=== PATIENT | male | born 1935 | race Caucasian/White ===

== ENCOUNTER → 2017-10-14 | Outpatient (CLI) | payer MEDICARE, OTHER ==
--- NOTE | 2017-10-17 11:16 | RADRPT ---
EXAM DATE/TIME: 10/14/2017 15:57 CONSULTATION: 82-year-old male with history of stage III lung CA and enlarging complex right upper lobe renal mass. Review of multiple prior CT and MRI examinations is performed. On 03/21/2017 CT exam there are 2 sma ll cysts in the superior pole of the right kidney but no definite lesion. On CT examination of 018 and MRI examination of 09/22/2017 there is a new 2.7 cm enhancing solid mass in the superior pole of the right kidney which is mixed approximately 50% endophytic. Mass is certainly amenable to ablati on and biopsy. Tobi Benson MD on October 17, 2017 at 11:00 Board Certified Radiologist. This report was verified electronically.
== END ==
LOC: HRAD 14:14
PROVIDERS: ATTEND Internal Medicine Hematology
DX: N28.89 Other specified disorders of kidney and ureter (principal)

== ENCOUNTER 2017-10-25 07:41 | Day surgery (SDC) | payer MEDICARE, OTHER ==
[~2017-10-25] VITALS: Ht 175.3 cm; Wt 97.7 kg
[2017-10-25] MEDS ORDERED: CLON0.1T PO (08:02)
[2017-10-25] MEDS ORDERED: CARV12.52 PO (08:03)
[2017-10-25] MEDS ORDERED: HYDR-3801 PO (08:04)
[2017-10-25] MEDS ORDERED: LOSA50TA PO (08:06)
[2017-10-25] MEDS ORDERED: GABA600T PO (08:06)
[2017-10-25] MEDS ORDERED: ATOR10TA15 PO (08:07)
[2017-10-25 08:08] VITALS: BP 196/98; PULSE 70; RESP 18; TEMP 97.6; O2SAT 94
[2017-10-25] MEDS ORDERED: FURO40TA PO (08:08)
[2017-10-25 08:43] LABS: AUTOMATED NEUTROPHIL # 5.1 TH/MM3 (1.8-7.7); BASOPHIL % 0.5 % (0.0-2.0); EOSINOPHIL # 0.2 TH/MM3 (0-0.4); HEMATOCRIT 40.7 % (39.0-51.0); LYMPH % 21.7 % (9.0-44.0); LYMPHOCYTE # 1.7 TH/MM3 (1.0-4.8); MEAN CELL VOLUME 84.6 FL (80.0-100.0); MEAN CORPUSCULAR HEMOGLOBIN 29.1 PG (27.0-34.0); MEAN CORPUSCULAR HGB CONC 34.4 % (32.0-36.0); MEAN PLATELET VOLUME 7.9 FL (7.0-11.0); MONO % 9.2 % (0.0-8.0); MONOCYTE # 0.7 TH/MM3 (0-0.9); NEUT % 65.6 % (16.0-70.0); PLATELET COUNT 326 TH/MM3 (150-450); RED BLOOD COUNT 4.81 MIL/MM3 (4.50-5.90); RED CELL DISTRIBUTION WIDTH 15.6 % (11.6-17.2); WHITE BLOOD COUNT 7.7 TH/MM3 (4.0-11.0)
[2017-10-25 08:56] LABS: INTERNATIONAL NORMALIZED RATIO 1.1 RATIO; PROTHROMBIN TIME - PATIENT 10.7 SEC (9.8-11.6)
[2017-10-25] MEDS ORDERED: INSULIN HUMAN REGULAR 1,000 UNITS/10 ML VIAL SQ PRN (09:00)
[2017-10-25] MEDS ORDERED: POVIDONE IODINE 5% (ANTISEPSIS KIT) 4 APPLICATIONS EACH NARE PRN (09:00)
[2017-10-25] MEDS ORDERED: ceFAZolin 2 GM in NS 100 ML IV SCH (09:00)
[2017-10-25] MEDS ORDERED: LACTATED RINGER'S 1000 ML IV PRN (09:00)
[2017-10-25] MEDS ORDERED: SODIUM CHLORID 0.9% 500 ML IV PRN (09:00)
[2017-10-25] MEDS ORDERED: METOPROLOL TARTRATE 25 MG TAB PO PRN (09:00)
[2017-10-25] MEDS ORDERED: LEVOFLOXACIN 500 MG PREMIX INJ 100 ML IV SCH (09:00)
[2017-10-25] MEDS ORDERED: CHLORHEXIDINE GLUCONATE 2 % 1 PACK (2 CLOTHS) TOPICAL PRN (09:00)
[2017-10-25] MEDS ORDERED: SODIUM CHLOR 0.9% 1000 ML INJ 1,000 ML IV SCH (09:00)
[2017-10-25 09:03] LABS: BICARBONATE 28.4 MEQ/L (21.0-32.0); CALCIUM 9.5 MG/DL (8.5-10.1); CREATININE 1.2 MG/DL (0.60-1.30)
[2017-10-25] MEDS ORDERED: ACETAMINOPHEN 1000 MG/100 ML 100 ML IV ONE (10:00)
[2017-10-25] MEDS ORDERED: FAMOTIDINE 20 MG/2 ML VIAL ONE (10:01)
[2017-10-25] MEDS ORDERED: SUGAMMADEX SODIUM 200 MG/2 ML VIAL IV PUSH ONE (10:01)
[2017-10-25] MEDS ORDERED: LIDOCAINE 1%/EPINEPHrine 1:100,000 SOLN 20 ML VIAL ONE (10:03)
--- NOTE | 2017-10-25 11:31 | PD.RAD ---
Post CT Procedure Prog Note Pre Procedure Diagnosis: (1) Renal mass Post Procedure Diagnosis: (1) Renal mass Procedure Date: October 25, 2017 Supervising Radiologist: Tobi Benson Anesthesia: General Plan of Activity Patient to Unit: PACU Patient Condition: Good See PACS Report for procedural detail/treatment Tobi Benson MD October 25, 2017 11:31
[2017-10-25] MEDS ORDERED: ePHEDrine/NS 25 MG/5 ML SYRINGE IV ONE (12:00)
[2017-10-25] MEDS ORDERED: PROPOFOL 200 MG/20 ML AMP IV ONE (12:00)
[2017-10-25] MEDS ORDERED: GLYCOPYRROLATE 1 MG/5 ML SYRINGE IV PUSH ONE (12:00)
[2017-10-25] MEDS ORDERED: NEOSTIGMINE 5 MG/5 ML SYRINGE IV PUSH ONE (12:00)
[2017-10-25] MEDS ORDERED: ROCURONIUM INJ 50 MG/5 ML SYRINGE IV PUSH ONE (12:00)
[2017-10-25] MEDS ORDERED: LIDOCAINE HCL 1% PF 5 ML SYRINGE OTHER ONE (12:00)
[2017-10-25] MEDS ORDERED: ONDANSETRON HCL 4 MG/2 ML VIAL IV ONE (12:00)
[2017-10-25] MEDS ORDERED: PHENYLEPHRINE HCL 10 MG/ML VIAL IV ONE (12:00)
[2017-10-25] MEDS ORDERED: KETOROLAC TROMETHAMINE 30 MG/ML (IVP) VIAL IV PUSH ONE (12:00)
[2017-10-25] MEDS ORDERED: PHENYLEPH/NS 1000 MCG/10 ML SYR IV ONE (12:00)
[2017-10-25] MEDS ORDERED: MIDAZOLAM HCL 2 MG/2 ML VIAL ONE (12:15)
[2017-10-25 12:38] LABS: HEMATOCRIT 39.7 % (39.0-51.0); HEMOGLOBIN 13.4 GM/DL (13.0-17.0)
[2017-10-25] MEDS ORDERED: DO NOT ADM ANY ANTICOAGULANT DRUGS PRN (12:45)
[2017-10-25 13:15] VITALS: BP 140/75; PULSE 68; RESP 16; TEMP 98.5; O2SAT 98
--- NOTE | 2017-10-25 13:18 | RADRPT ---
EXAM DATE: 10/25/2017 12:26 PM EDT AGE/SEX: 82 years / Male INDICATIONS: Right renal mass, biopsy and cryoablation. CLINICAL DATA: This is the patient's initial encounter. Patient reports that signs and symptoms have been present for 1 day and indicates a pain score of 0/10. MEDICAL/SURGICAL HISTORY: Carcinoma, lung. Diabetes mellitus type II. Coronary artery stent. Cholecystectomy. COMPARISON: No prior [facility] exams available for comparison. BIOPSY SITE: Right renal MEDICATION(S): 2 grams cefazolin (Ancef) IV Anesthesia and pain control was provided by the Anesthesia department. DEVICE(S): 18 gauge Temno core biopsy needle 17 gauge Temno needle One core specimen(s) sent to the laboratory for pathologic evaluation. Intra-procedural antibiotics were given as prescribed above. . . PROCEDURE: CT guided Right renal mass biopsy Prior to the procedure informed consent was obtained. Any appropriate prior imaging studies were rev iewed. Using automated exposure control and adjustment of the mA and/or kV according to patient size, radiat ion dose was kept as low as reasonably achievable to obtain optimal diagnostic quality images. DICOM format image data is available electronically for review and comparison. The site was prepped in a sterile fashion. Full sterile technique was used, including cap, mask, irineo rile gloves and gown and a large sterile sheet. Hand hygiene and 2% chlorhexidine and/or betadine/al cohol prep was utilized per protocol for cutaneous antisepsis. The skin and subcutaneous tissues wer e infiltrated with local anesthetic solution. With CT guidance the previously identified target was localized. Biopsy was performed using the presc ribed needle as above. Adequate hemostasis was obtained with compression at the puncture site. Follow-up CT scan reveals no hemorrhage. The patient tolerated the procedure well and there were no complications. The patient was returned to the Radiology Outpatient Unit in stable condition. CONCLUSION: Uncomplicated CT guided biopsy. Electronically signed by: Tobi Benson MD 10/25/2017 1:17 PM EDT
[2017-10-25 13:45] VITALS: BP 135/79; PULSE 65; RESP 16; O2SAT 98
--- NOTE | 2017-10-25 13:50 | RADRPT ---
EXAM DATE: 10/25/2017 12:13 PM EDT AGE/SEX: 82 years / Male INDICATIONS: Right renal mass cryoablation. CLINICAL DATA: This is the patient's initial encounter. Patient reports that signs and symptoms have been present for 1 day and indicates a pain score of 0/10. MEDICAL/SURGICAL HISTORY: Carcinoma, lung. Diabetes mellitus type II. Coronary artery stent. Cholecystectomy. Anesthesia and pain control was provided by the Anesthesia department. DEVICE(S): 14 gauge Cryoablation probe x 2 COMPARISON: No prior [facility] exams available for comparison. PROCEDURE : 1. CT guided right renal mass cryoablation. FINDINGS: Under sterile conditions and using aseptic technique with CT guidance the mass was localized and sati sfactory approach was taken to access the lesion. Using automated exposure control and adjustment of the mA and/or kV according to patient size, radiation dose was kept as low as reasonably achievable to obtain optimal diagnostic quality images. DICOM format image data is available electronically for review and comparison. [place] Cryoprobes were employed using percutaneous technique employing the prescribed probes. A freeze-thaw, freeze-thaw technique was employed and serial imaging demonstrated an ice ball encomp assing the entire lesion. Post procedure images demonstrate expected postoperative changes without e vidence of hematoma. CONCLUSION: 1. Uncomplicated right renal mass cryoablation as above. Electronically signed by: Tobi Benson MD 10/25/2017 1:49 PM EDT
[2017-10-25 14:15] VITALS: BP 148/74; PULSE 62; RESP 16; O2SAT 98
[2017-10-25 14:45] VITALS: BP 154/77; PULSE 64; RESP 16; O2SAT 98
[2017-10-25 15:45] VITALS: BP 145/79; PULSE 76; RESP 16; O2SAT 98
[2017-10-25 16:00] LABS: HEMOGLOBIN 13.4 GM/DL (13.0-17.0)
--- NOTE | 2017-10-25 16:02 | EKG ---
Date Performed: 10/25/2017 Time Performed: 08:22:50 PTAGE: 82 years EKG: Sinus rhythm NORMAL ECG NO PREVIOUS TRACING DOCTOR: Myron Goff Interpretating Date/Time 10/25/2017 16:00:41
== END 2017-10-25 16:35 | disposition home or self-care (01) ==
LOC: HROP 07:41 → HRIP 07:49 → HROP 16:35
PROVIDERS: ATTEND Internal Medicine Hematology
DX: N28.89 Other specified disorders of kidney and ureter (principal); E11.9 Type 2 diabetes mellitus without complications; Z79.84 Long term (current) use of oral hypoglycemic drugs; Z95.5 Presence of coronary angioplasty implant and graft; Z90.49 Acquired absence of other specified parts of digestive tract
CPT/HCPCS: 00862; 50200; 50593; 77012; 77013; 80048; 85014; 85018; 85025; 85610; 85730; 88305; 93005; C2618; J0131; J0690; J1885; J2250; J2370; J2405; J2710; J3010; J7030

== ENCOUNTER 2017-11-01 13:06 | Day surgery (SDC) | payer MEDICARE, OTHER ==
[~2017-11-01 13:06] MED LIST: ATOR10TA15 PO; CARV12.52 PO; CLON0.1T PO; FURO40TA PO; GABA600T PO; HYDR-3801 PO; LOSA50TA PO
[2017-11-01 13:37] VITALS: BP 166/95; PULSE 77; RESP 18; TEMP 97.9; O2SAT 93
--- NOTE | 2017-11-03 15:56 | RADRPT ---
EXAM DATE: 11/03/2017 8:00 AM EDT AGE/SEX: 82 years / Male INDICATIONS: F/u renal cryoablation HISTORY OF PRESENT ILLNESS: 82-year-old male postop day #7 status post right renal mass cryoablation . Patient reports moderate flank pain approximately 48 hours following the procedure data is now near ly resolved. Is otherwise without complaints and denies hematuria and fever. TEMPERATURE: 97.9 HEART RATE: 77 BLOOD PRESSURE: 166/95 RESPIRATIONS: 20 OXIMETRY: 93 PNEUMONIA VACCINE: ASSESSMENT: Expected postoperative course following right renal mass cryoablation. Biopsy results were shared wit h the patient. Patient will require follow-up imaging in approximately 8-12 weeks to serve as new rhianna urrutia. TIME SPENT: 15 minutes. Electronically signed by: Tobi Benson MD 11/03/2017 3:55 PM EDT
== END 2017-11-01 15:30 | disposition home or self-care (01) ==
LOC: HROP 13:06 → HRIP 13:09 → HROP 15:30
PROVIDERS: ATTEND Radiology Diagnostic Radiology
DX: C64.1 Malignant neoplasm of right kidney, except renal pelvis (principal)